=== PATIENT | female | born 1975 | race Two or more races ===

== ENCOUNTER 2016-09-01 14:53 | Emergency (ER) | payer SELFPAY ==
[~2016-09-01] VITALS: Ht 152.4 cm; Wt 85.3 kg
[~2016-09-01 14:53] MED LIST: SULF1TAB24 PO; TRAM-48 PO
--- NOTE | 2016-09-01 15:34 | EKG ---
[facility] [address] [place] [address] Test Date: 2016-09-01 Test Time: 15:11:38 Pat Name: YAMIL BLAKELY Department: Room: Gender: F [employer]: : 1975 Requested By: GARRET MOJICA Order Number: [id number] Reading MD: Cher Osuna Measurements Intervals Bude Rate: 93 P: 30 MN: 158 QRS: -15 QRSD: 80 T: -3 QT: 350 QTc: 438 Interpretive Statements SINUS RHYTHM LEFTWARD AXIS OTHERWISE NORMAL ECG RI6.01 No previous ECG available for comparison Electronically Signed On 09-03-2016 15:49:34 CDT by Cher Osuna
--- NOTE | 2016-09-01 15:37 | RAD ---
Chest radiograph 09/01/2016 at 1526 hours Indication: Chest pain Comparison: None available Technique: Single portable upright frontal view of the chest is provided. Findings: Cardiomediastinal silhouette is within normal limits. No pleural effusions, pulmonary vascular congestion or pneumothorax. The lungs are clear. Osseous structures are normal. Impression: No acute cardiopulmonary process.
[2016-09-01 15:42] LABS: BASO % 0 % (0-3); EOS % 1 % (0-3); HEMATOCRIT 41.6 % (36.0-47.0); HEMOGLOBIN 14.5 g/dL (12.0-15.5); LYMPH % 19 % (24-48); MEAN CORPUSCULAR HEMOGLOBIN 30 pg (25-35); MEAN CORPUSCULAR HGB CONC 35 g/dL (31-37); MEAN CORPUSCULAR VOLUME 85 fL (79-100); MONO % 3 % (0-9); NEUT % 77 % (31-73); PLATELET COUNT 237 x10^3/uL (140-400); RED BLOOD COUNT 4.93 x10^6/uL (3.50-5.40); RED CELL DISTRIBUTION WIDTH 13.2 % (11.5-14.5); WHITE BLOOD COUNT 10.8 x10^3/uL (4.0-11.0)
--- NOTE | 2016-09-01 16:31 | ED.ADGEN ---
Past Medical History Past Medical History: Diabetes-Type II Past Surgical History: No Surgical History, Alcohol Use: None Drug Use: None Adult General Chief Complaint Chief Complaint: CHEST PAIN HPI HPI Patient is a 41 year old Comoran speaking, female who presents with left-sided chest wall pain. Chest wall pain is described as sharp, worse with palpation and deep breathing. Pain lasts for 2-3 seconds at a time and occurs with deep breathing an normal exertion. It is not associated shortness of breath, nausea, sweats, leg pain or swelling. Patient reports occasional cough. Denies abdominal pain. No leg pain or swelling. No history of DVT or PE. Patient is a nonsmoker. She is accompanied at bedside by her daughter. Review of Systems Review of Systems ROS as per HPI. Allergies Allergies Allergies Coded Allergies Type Severity Reaction Last Updated Verified No Known Drug Allergies 09/06/15 No Physical Exam Physical Exam Constitutional: Well developed, well nourished, no acute distress, non-toxic appearance. HENT: Normocephalic, atraumatic, bilateral external ears normal, oropharynx moist, nose normal. Eyes: PERRLA, EOMI, conjunctiva normal. Neck: Normal range of motion, no tenderness, supple. Cardiovascular:Heart rate regular rhythm, no murmur. Lungs & Thorax: Bilateral breath sounds clear to auscultation. Abdomen: Bowel sounds normal, soft, no tenderness. Skin: Warm, dry. Back: No tenderness. Extremities: No tenderness. Neurologic: Alert and oriented X 3, normal motor function, normal sensory function, no focal deficits noted. Psychologic: Affect normal, judgement normal, mood normal . Current Patient Data Vital Signs Vital Signs Date Time Temp Pulse Resp B/P (MAP) Pulse Ox O2 Delivery O2 Flow Rate FiO2 09/01/16 18:15 94 20 163/96 (118) 94 Room Air 09/01/16 15:47 98.3 98.3 Lab Values Laboratory Tests Test 09/01/16 15:30 White Blood Count 10.8 x10^3/uL (4.0-11.0) Red Blood Count 4.93 x10^6/uL (3.50-5.40) Hemoglobin 14.5 g/dL (12.0-15.5) Hematocrit 41.6 % (36.0-47.0) Mean Corpuscular Volume 85 fL (79-100) Mean Corpuscular Hemoglobin 30 pg (25-35) Mean Corpuscular Hemoglobin Concent 35 g/dL (31-37) Red Cell Distribution Width 13.2 % (11.5-14.5) Platelet Count 237 x10^3/uL (140-400) Neutrophils (%) (Auto) 77 % (31-73) H Lymphocytes (%) (Auto) 19 % (24-48) L Monocytes (%) (Auto) 3 % (0-9) Eosinophils (%) (Auto) 1 % (0-3) Basophils (%) (Auto) 0 % (0-3) Neutrophils # (Auto) 8.3 x10^3uL (1.8-7.7) H Lymphocytes # (Auto) 2.0 x10^3/uL (1.0-4.8) Monocytes # (Auto) 0.3 x10^3/uL (0.0-1.1) Eosinophils # (Auto) 0.1 x10^3/uL (0.0-0.7) Basophils # (Auto) 0.0 x10^3/uL (0.0-0.2) D-Dimer (Marilee) < 0.27 ug/mlFEU Sodium Level 136 mmol/L (136-145) Potassium Level 3.6 mmol/L (3.5-5.1) Chloride Level 101 mmol/L (98-107) Carbon Dioxide Level 22 mmol/L (21-32) Anion Gap 13 (6-14) Blood Urea Nitrogen 14 mg/dL (7-20) Creatinine 0.6 mg/dL (0.6-1.0) Estimated GFR (Cockcroft-Gault) 111.3 BUN/Creatinine Ratio 23 (6-20) H Glucose Level 225 mg/dL (70-99) H Calcium Level 9.1 mg/dL (8.5-10.1) Total Bilirubin 0.4 mg/dL (0.2-1.0) Aspartate Amino Transferase (AST) 21 U/L (15-37) Alanine Aminotransferase (ALT) 28 U/L (14-59) Alkaline Phosphatase 108 U/L (46-116) Troponin I Quantitative < 0.017 ng/mL (0.000-0.055) Total Protein 7.6 g/dL (6.4-8.2) Albumin 3.5 g/dL (3.4-5.0) Albumin/Globulin Ratio 0.9 (1.0-1.7) L Laboratory Tests 09/01/16 15:30 Laboratory Tests 09/01/16 15:30 EKG EKG [Chest XR: Sinus rhythm, rate 93, no acute ST-T wave changes.] Radiology/Procedures Radiology/Procedures [] Course & Med Decision Making Course & Med Decision Making Pertinent Labs and Imaging studies reviewed. (See chart for details) [Reproducible chest wall pain with alvarado negative workup. Symptoms most consistent with costochondritis. We'll treat supportively with PCP follow-up as needed. drapery head former was utilized to give her patient's understanding of diagnosis and discharge instructions.] Dragon Disclaimer Dragon Disclaimer This electronic medical record was generated, in whole or in part, using a voice recognition dictation system. GARRET MOJICA DO Sep 01, 2016 16:30
[2016-09-01 16:32] LABS: CALCIUM 9.1 mg/dL (8.5-10.1); CREATININE 0.6 mg/dL (0.6-1.0); GFR 111.3; POTASSIUM 3.6 mmol/L (3.5-5.1)
[2016-09-01 16:38] LABS: ALBUMIN 3.5 g/dL (3.4-5.0); ALBUMIN/GLOBULIN RATIO 0.9 (1.0-1.7); TOTAL BILIRUBIN 0.4 mg/dL (0.2-1.0); TOTAL PROTEIN 7.6 g/dL (6.4-8.2)
[2016-09-01 18:15] VITALS: BP 163/96
== END 2016-09-01 18:41 | disposition home or self-care (01) ==
LOC: ER 14:53
DX: R07.89 Other chest pain (principal); R05 Cough; E11.9 Type 2 diabetes mellitus without complications
CPT/HCPCS: 36415; 71010; 80053; 84484; 85027; 85379; 93005; 99285-25

== ENCOUNTER 2017-02-21 09:59 | Emergency (ER) | payer SELFPAY ==
[2017-02-21 10:20] LABS: ADD MAN DIFF? NO
[2017-02-21 10:36] LABS: ANION GAP 18 (6-14); BLOOD UREA NITROGEN 14 mg/dL (7-20); CALCIUM 9.1 mg/dL (8.5-10.1); CARBON DIOXIDE 17 mmol/L (21-32); CHLORIDE 97 mmol/L (98-107); CREATININE 0.7 mg/dL (0.6-1.0); GFR 93.2; GLUCOSE 387 mg/dL (70-99); POTASSIUM 4.3 mmol/L (3.5-5.1); SODIUM 132 mmol/L (136-145)
[2017-02-21 10:38] LABS: BASO # 0.1 x10^3/uL (0.0-0.2); BASO % 1 % (0-3); EOS # 0.2 x10^3/uL (0.0-0.7); EOS % 2 % (0-3); HEMATOCRIT 47.8 % (36.0-47.0); LYMPH % 38 % (24-48); MEAN CORPUSCULAR HEMOGLOBIN 29 pg (25-35); MEAN CORPUSCULAR HGB CONC 33 g/dL (31-37); MEAN CORPUSCULAR VOLUME 87 fL (79-100); MONO # 0.4 x10^3/uL (0.0-1.1); MONO % 5 % (0-9); NEUT # 4.4 x10^3uL (1.8-7.7); NEUT % 55 % (31-73); PLATELET COUNT 172 x10^3/uL (140-400); RED BLOOD COUNT 5.48 x10^6/uL (3.50-5.40); RED CELL DISTRIBUTION WIDTH 13.3 % (11.5-14.5); WHITE BLOOD COUNT 8.1 x10^3/uL (4.0-11.0)
[2017-02-21 10:43] LABS: ALBUMIN 3.6 g/dL (3.4-5.0); ALK PHOS 127 U/L (46-116); ALT (SGPT) 60 U/L (14-59); AST (SGOT) 52 U/L (15-37); DIRECT BILIRUBIN < 0.1 mg/dL (0.0-0.2); LIPASE 88 U/L (73-393); TOTAL BILIRUBIN 0.3 mg/dL (0.2-1.0); TOTAL PROTEIN 8.4 g/dL (6.4-8.2)
[2017-02-21 10:48] LABS: D-DIMER < 0.27 ug/mlFEU (0.00-0.50); TROPONINI < 0.017 ng/mL (0.000-0.055)
[2017-02-21] MEDS: IV NORMAL SALINE 1000ML BAG 1,000 ML IV (11:17)
[2017-02-21] MEDS: ASPIRIN CHEWABLE 81 MG TABLET. PO (11:18)
[2017-02-21 11:23] LABS: BASE EXCESS COOX -3 mmol/L (-3-3); CARBON MONOXIDE 0.1 % (0.0-1.9); HCO3 COOX 22 mmol/L (21-28); METHEMOGLOBIN 0.5 % (0.0-1.9); OXYHEMOGLOBIN 94.1 %; PCO2 COOX 39 mmHg (35-46); PH COOX 7.36 (7.35-7.45); PO2 COOX 76 mmHg (75-108); SAT O2 COOX 95 % (92-99); TOTAL HEMOGLOBIN 15.8 g/dL
[2017-02-21 12:03] LABS: ACETAMIN < 2.0 mcg/ml (10-30); SALIC < 2.8 mg/dL (2.8-20.0)
[2017-02-21 12:06] LABS: LACTIC ACID 1.8 mmol/L (0.4-2.0)
[2017-02-21 14:06] LABS: BILIRUBIN,URINE NEGATIVE (NEG); CLARITY,URINE CLEAR; COLOR,URINE YELLOW; GLUCOSE,URINE >=1000 mg/dL (NEG); NITRITE,URINE NEGATIVE (NEG); PROTEIN,URINE 100 mg/dL (NEG-TRACE); UROBILINOGEN,URINE 0.2 mg/dL (0.2 mg/dL)
[2017-02-21 14:19] LABS: BACTERIA,URINE MODERATE /HPF (0-FEW); RBC,URINE OCC /HPF (0-2); SQUAMOUS EPITHELIAL CELL,UR MOD /LPF; WBC,URINE OCC /HPF (0-4)
[2017-02-21 14:26] LABS: NEG OBC UR NEG; POS OBC UR POS; U PREG PATIENT NEGATIVE (NEG)
== END 2017-02-21 15:55 | disposition home or self-care (01) ==
LOC: ER 09:59
DX: R07.89 Other chest pain (principal); R05 Cough; R06.00 Dyspnea, unspecified; E11.9 Type 2 diabetes mellitus without complications; Z79.4 Long term (current) use of insulin
CPT/HCPCS: 36415; 36600; 71045; 80048; 80076; 80329; 81001; 81025; 82805; 83605; 83690; 84484; 85025; 85379; 87086; 93005; 96360; 99285-25; J7030

== ENCOUNTER 2018-02-27 10:05 | Emergency (ER) | payer SELFPAY ==
[~2018-02-27] VITALS: Ht 157.5 cm; Wt 83.5 kg
[2018-02-27 10:18] VITALS: BP 168/89
[2018-02-27] MEDS ORDERED: IBUPROFEN 400 MG TABLET. PO ONE (10:45)
--- NOTE | 2018-02-27 10:57 | RAD ---
Chest, 2 views, 02/27/2018: HISTORY: Cough, fever, body aches Comparison is made to a study from 02/21/2017. The heart is at the upper limits of normal in size. The pulmonary vascularity is normal. No pulmonary infiltrate is seen. There is no evidence of pleural fluid. IMPRESSION: No acute cardiopulmonary abnormality is detected. Electronically signed by: Ramon Leon MD (02/27/2018 10:52 AM) [facility]
[2018-02-27 11:05] LABS: INFLUENZA B PATIENT NEGATIVE (NEGATIVE)
[2018-02-27 11:06] LABS: INFLUENZA A PATIENT POSITIVE (NEGATIVE)
--- NOTE | 2018-02-27 11:14 | PHYS DOC ---
Past Medical History Past Medical History: Diabetes-Type II Past Surgical History: No Surgical History, Alcohol Use: None Drug Use: None Adult General Chief Complaint Chief Complaint: FLU SYMPTOM HPI HPI Patient is a 42 year old female who presents to the emergency Department today with complaints of a fever, cough, body aches, headache, and fatigue for the last 5 days. He states that she received her flu shot this past fall. She denies any nausea, vomiting, diarrhea, abdominal pain, ear pain, or sore throat. Patient states she last took Tylenol around 8:00 this morning for relief of her fever. She states that nothing has seemed to help or provoke her symptoms. Patient states she is a diabetic and her blood sugar has been running 120 with the illness.. Review of Systems Review of Systems Constitutional: See history of present illness Eyes: Denies change in visual acuity, redness, or eye pain [] HENT: Denies ear pain or sore throat; see history of present illness [] Respiratory: Denies wheezing or shortness of breath; see history of present illness [] Cardiovascular: No additional information not addressed in HPI [] GI: Denies abdominal pain, nausea, vomiting, or diarrhea [] : Denies dysuria or increased urinary frequency Musculoskeletal: [place] generalized body aches Integument: Denies rash or skin lesions [] Neurologic: Denies focal weakness or sensory changes [] All other systems were reviewed and found to be within normal limits, except as documented in this note. Current Medications Current Medications Current Medications Medications (Trade) Dose Ordered Sig/[facility] Start Time Stop Time Status Last Admin Dose Admin Ibuprofen (Motrin) 800 mg 1X ONCE 02/27/18 10:45 02/27/18 10:46 DC 02/27/18 10:43 800 MG Allergies Allergies Allergies Coded Allergies Type Severity Reaction Last Updated Verified No Known Drug Allergies 02/21/17 No Physical Exam Physical Exam Constitutional: Well developed, well nourished, no acute distress, ill appearance. [] HENT: Normocephalic, atraumatic, bilateral external ears normal, bilateral TMs normal, posterior pharynx normal, oropharynx moist, no oral exudates, nose normal. [] Eyes: PERRLA, conjunctiva injected, no discharge. [] Neck: Normal range of motion, no tenderness, supple, no stridor. [] Cardiovascular:Heart rate regular rhythm, no murmur [] Lungs & Thorax: Bilateral breath sounds clear to auscultation [] Skin: Flushed, hot, and dry, no rash. [] Extremities: No cyanosis, no clubbing, ROM intact, no edema. [] Neurologic: Alert and oriented X 3, normal motor function, normal sensory function, no focal deficits noted. [] Psychologic: Affect normal, judgement normal, mood normal. [] Current Patient Data Vital Signs Vital Signs Date Time Temp Pulse Resp B/P (MAP) Pulse Ox O2 Delivery O2 Flow Rate FiO2 02/27/18 10:18 102.7 123 16 168/89 (115) 95 Room Air 102.7 Lab Values Laboratory Tests Test 02/27/18 10:19 Influenza Type A Antigen Positive (NEGATIVE) Influenza Type B Antigen Negative (NEGATIVE) EKG EKG [] Radiology/Procedures Radiology/Procedures PROCEDURE: CHEST PA & LATERAL Chest, 2 views, 02/27/2018: HISTORY: Cough, fever, body aches Comparison is made to a study from 02/21/2017. The heart is at the upper limits of normal in size. The pulmonary vascularity is normal. No pulmonary infiltrate is seen. There is no evidence of pleural fluid. IMPRESSION: No acute cardiopulmonary abnormality is detected.[] Influenza A positive; influenza B negative Course & Med Decision Making Course & Med Decision Making Pertinent Labs and Imaging studies reviewed. (See chart for details) [] Dragon Disclaimer Dragon Disclaimer This electronic medical record was generated, in whole or in part, using a voice recognition dictation system. Departure Departure Impression: Primary Impression: Influenza A Disposition: 01 HOME, SELF-CARE Condition: STABLE Referrals: NO PCP (PCP) Patient Instructions: Fever, Adult, [id number], Influenza A (H1N1) Additional Instructions: Recommend the use of a Cool mist humidifier in room at bedtime. Tylenol or ibuprofen prn pain/fever. Increase clear fluids. Avoid triggers such as smoke, fragrance, dust, and pollen. May take OTC cough suppressants as needed. Follow-up with your primary care doctor symptoms persist , Return to the ER symptoms worsen. CARLA GARZA APRN Feb 27, 2018 11:14
== END 2018-02-27 11:42 | disposition home or self-care (01) ==
LOC: ER 10:05
DX: J11.1 Influenza due to unidentified influenza virus with other respiratory manifestations (principal); R53.83 Other fatigue; M79.18 Myalgia, other site; Z98.890 Other specified postprocedural states; E11.9 Type 2 diabetes mellitus without complications
CPT/HCPCS: 71046; 87804; 99284-25

== ENCOUNTER 2018-05-01 09:03 | Emergency (ER) | payer SELFPAY ==
[~2018-05-01] VITALS: Ht 144.8 cm; Wt 83.5 kg
[2018-05-01 09:14] VITALS: BP 147/70
[2018-05-01 09:35] LABS: BILIRUBIN,URINE NEGATIVE (NEG); CLARITY,URINE CLEAR; COLOR,URINE YELLOW; NITRITE,URINE NEGATIVE (NEG); PROTEIN,URINE NEGATIVE (NEG-TRACE); UROBILINOGEN,URINE 0.2 mg/dL (0.2 mg/dL)
[2018-05-01 09:39] LABS: BACTERIA,URINE MANY /HPF (0-FEW); SQUAMOUS EPITHELIAL CELL,UR MANY /LPF
[2018-05-01 09:40] LABS: RBC,URINE OCC /HPF (0-2)
--- NOTE | 2018-05-01 09:40 | PHYS DOC ---
Past Medical History Past Medical History: Diabetes-Type II Past Surgical History: No Surgical History, Alcohol Use: None Drug Use: None Adult General Chief Complaint Chief Complaint: LOWER BACK PAIN OR INJURY HPI HPI Patient is a 43 year old female with history of diabetes type 2 who presents to the ED today complaining of 10 out of 10 bilateral low back pain nonradiating in nature that began 2 weeks ago, patient states the pain is worse when she is sitting down, she describes the pain as burning sensation. Patient denies any numbness or tingling to bilateral lower extremities. Denies any loss of bowel bladder function. She states she's been taking kgle-qne-fraaeyo medications with minimal relief. PCP [facility] Patient is Faroese-speaking and interpretation is provided by family Review of Systems Review of Systems Constitutional: Denies fever or chills [] Eyes: Denies change in visual acuity, redness, or eye pain [] HENT: Denies nasal congestion or sore throat [] Respiratory: Denies cough or shortness of breath [] Cardiovascular: No additional information not addressed in HPI [] GI: Denies abdominal pain, nausea, vomiting, bloody stools or diarrhea [] : Denies dysuria or hematuria [] Musculoskeletal: Reports bilateral low back pain Integument: Denies rash or skin lesions [] Neurologic: Denies headache, focal weakness or sensory changes [] All other systems were reviewed and found to be within normal limits, except as documented in this note. Current Medications Current Medications Current Medications Medications (Trade) Dose Ordered Sig/Monique Start Time Stop Time Status Last Admin Dose Admin Acetaminophen/ Hydrocodone Bitart (Lortab 5/325) 1 tab 1X ONCE 05/01/18 09:45 05/01/18 09:46 DC 05/01/18 09:51 1 TAB Cyclobenzaprine HCl (Flexeril) 10 mg 1X ONCE 05/01/18 09:45 05/01/18 09:46 DC 05/01/18 09:49 10 MG Naproxen (Naprosyn) 500 mg 1X STAT 05/01/18 09:36 05/01/18 09:38 DC 05/01/18 09:49 500 MG Allergies Allergies Allergies Coded Allergies Type Severity Reaction Last Updated Verified No Known Drug Allergies 02/21/17 No Physical Exam Physical Exam Constitutional: Well developed, well nourished, no acute distress, non-toxic appearance. [] HENT: Normocephalic, atraumatic, bilateral external ears normal, oropharynx moist, no oral exudates, nose normal. [] Eyes: PERRLA, EOMI, conjunctiva normal, no discharge. [] Neck: Normal range of motion, no tenderness, supple, no stridor. [] Cardiovascular:Heart rate regular rhythm, no murmur [] Lungs & Thorax: Bilateral breath sounds clear to auscultation [] Abdomen: Bowel sounds normal, soft, no tenderness, no masses, no pulsatile masses. [] Skin: Warm, dry, no erythema, no rash. [] Back: Diffuse paraspinal muscle tenderness bilateral lumbar spine, no midline lumbar spine tenderness, no CVA tenderness. [] Extremities: No tenderness, no cyanosis, no clubbing, ROM intact, no edema. [] Neurologic: Alert and oriented X 3, normal motor function, normal sensory function, no focal deficits noted. [] Psychologic: Affect normal, judgement normal, mood normal. [] Current Patient Data Vital Signs Vital Signs Date Time Temp Pulse Resp B/P (MAP) Pulse Ox O2 Delivery O2 Flow Rate FiO2 05/01/18 09:51 96 05/01/18 09:14 97.7 74 18 147/70 (95) Room Air 97.7 Lab Values Laboratory Tests Test 05/01/18 09:13 Urine Collection Type Void Urine Color Yellow Urine Clarity Clear Urine pH 5.0 Urine Specific Crosby >=1.030 Urine Protein Negative mg/dL (NEG-TRACE) Urine Glucose (UA) >=1000 mg/dL (NEG) Urine Ketones (Stick) Negative mg/dL (NEG) Urine Blood Negative (NEG) Urine Nitrite Negative (NEG) Urine Bilirubin Negative (NEG) Urine Urobilinogen Dipstick 0.2 mg/dL (0.2 mg/dL) Urine Leukocyte Esterase Negative (NEG) Urine RBC Occ /HPF (0-2) Urine WBC 5-10 /HPF (0-4) Urine Squamous Epithelial Cells Many /LPF Urine Bacteria Many /HPF (0-FEW) Urine Mucus Slight /LPF EKG EKG [] Course & Med Decision Making Course & Med Decision Making Pertinent Labs and Imaging studies reviewed. (See chart for details) This is a 43-year-old female patient presented to the ED today with bilateral low back pain that has been going on for 2 weeks. Urine analysis is negative for infection, negative for blood. Glucose over 1000, patient has known history of diabetes, she states she has not taken any of her metformin or glyburide this morning. Patient's pain appears musculoskeletal. She will be discharged with tramadol. Follow-up with her PCP in the course of this week or next week. Dragon Disclaimer Dragon Disclaimer This electronic medical record was generated, in whole or in part, using a voice recognition dictation system. Departure Departure Impression: Primary Impression: Low back pain Disposition: HOME, SELF-CARE Condition: STABLE Referrals: NO PCP (PCP) follow up with your doctor at [facility] next week Patient Instructions: Back Pain, Adult Additional Instructions: You were evaluated in the emergency room for back pain. We put you on medications, take them as prescribed. Follow-up with your doctor in 1-2 weeks. Apply heat to your low back. Do not lift anything greater than a gallon of milk for week. Follow up with your doctor next week. Scripts Tramadol Hcl (TRAMADOL HCL) 50 Mg Tablet 50 MG PO Q6HRS PRN for PAIN, #30 TAB Prov: FRAN MATTHEWS APRN 05/01/18 Problem Qualifiers Primary Impression: Low back pain Chronicity: acute Back pain laterality: bilateral Sciatica presence: without sciatica Qualified Codes: M54.5 - Low back pain FRAN MATTHEWS APRN May 01, 2018 09:40
[2018-05-01] MEDS: NAPROXEN 500 MG TABLET PO STA (09:49)
[2018-05-01] MEDS: CYCLOBENZAPRINE 10 MG TABLET. PO ONE (09:49)
[2018-05-01] MEDS: HYDROcodone/APAP 5/325MG 1 TAB TABLET PO ONE (09:51)
[2018-05-01] MEDS ORDERED: TRAM50TA PO (09:56)
== END 2018-05-01 10:15 | disposition home or self-care (01) ==
LOC: ER 09:03
DX: M54.5 Low back pain (principal); E11.9 Type 2 diabetes mellitus without complications; Z98.890 Other specified postprocedural states
CPT/HCPCS: 81001; 87086; 99284

== ENCOUNTER 2021-06-15 17:07 | Emergency (ER) | payer SELFPAY ==
[~2021-06-15] VITALS: Ht 134.6 cm; Wt 81.4 kg
[~2021-06-15 17:07] MED LIST changes: +TRAM50TA PO
[2021-06-15 17:10] VITALS: BP 159/76
[2021-06-15] MEDS ORDERED: predniSONE 10 MG TABLET PO ONE (18:00)
[2021-06-15] MEDS ORDERED: PRED20TA PO (18:16)
[2021-06-15] MEDS ORDERED: TRIA15OI TP (18:16)
--- NOTE | 2021-06-15 18:17 | PHYS DOC ---
Past Medical History Past Medical History: Diabetes-Type II Past Surgical History: No Surgical History, Smoking Status: Never Smoker Alcohol Use: None Drug Use: None General Adult EDM: Chief Complaint: SKIN RASH/ABSCESS HPI: HPI: Patient is a 46-year-old female that presents today with a rash. Patient is Swedish-speaking only and the assistant professor of physics line was used for all information in the HPI and the review of systems. Patient states the rash started approximately 3 months ago over her arms and abdomen area, she states that she was seen at the [facility] emergency department was given the medication for a scabies which she treated herself and then she states that they gave her a prescription for steroid cream to be used after she had treated for the scabies. She said that she states that she is a [facility] of [facility] she has been using oatmeal baths over the last 3 months and the rash has not improved she presents today for further evaluation and management of this rash. Clinics, as she has not followed up with them regarding this rash. 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 Patient denies facial swelling, lip swelling, fever chills, chest pain, or shortness of breath. Review of Systems: Review of Systems: Constitutional: Denies fever or chills. [] Eyes: Denies change in visual acuity. [] HENT: Denies nasal congestion or sore throat. [] Respiratory: Denies cough or shortness of breath. [] Cardiovascular: Denies chest pain or edema. [] GI: Denies abdominal pain, nausea, vomiting, bloody stools or diarrhea. [] : Denies dysuria. [] Musculoskeletal: Denies back pain or joint pain. [] Integument: rash. [] Neurologic: Denies headache, focal weakness or sensory changes. [] Endocrine: Denies polyuria or polydipsia. [] Lymphatic: Denies swollen glands. [] Psychiatric: Denies depression or anxiety. [] Heart Score: C/O Chest Pain: No Risk Factors: Risk Factors: DM, Current or recent (<one month) smoker, HTN, HLP, family history of CAD, obesity. Risk Scores: Score 0 - 3: 2.5% MACE over next 6 weeks - Discharge Home Score 4 - 6: 20.3% MACE over next 6 weeks - Admit for Clinical Observation Score 7 - 10: 72.7% MACE over next 6 weeks - Early Invasive Strategies Current Medications: Current Medications Medications (Trade) Dose Ordered Sig/Monique Start Time Stop Time Status Last Admin Dose Admin Prednisone (Prednisone) 50 mg 1X ONCE 06/15/21 18:00 06/15/21 18:01 UNV Allergies: Allergies: Allergies Coded Allergies Type Severity Reaction Last Updated Verified No Known Drug Allergies 02/21/17 No Physical Exam: PE: Constitutional: Well developed, well nourished, no acute distress, non-toxic appearance. [] HENT: Normocephalic, atraumatic, bilateral external ears normal, oropharynx moist, no oral exudates, nose normal. [] Eyes: PERRLA, EOMI, conjunctiva normal, no discharge. [] Neck: Normal range of motion, no tenderness, supple, no stridor. [] Cardiovascular:Heart rate regular rhythm, no murmur [] Lungs & Thorax: Bilateral breath sounds clear to auscultation [] Abdomen: Bowel sounds normal, soft, no tenderness, no masses, no pulsatile masses. [] Skin: Reddened raised rash noted over bilateral arms and back and abdomen, no drainage noted rash is not warm to touch, Back: No tenderness, no CVA tenderness. [] Extremities: No tenderness, no cyanosis, no clubbing, ROM intact, no edema. [] Neurologic: Alert and oriented X 3, normal motor function, normal sensory function, no focal deficits noted. [] Psychologic: Affect normal, judgement normal, mood normal. [] Current Patient Data: Vital Signs: Vital Signs Date Time Temp Pulse Resp B/P (MAP) Pulse Ox O2 Delivery O2 Flow Rate FiO2 06/15/21 17:10 97.5 18 20 159/76 (103) 97 Room Air 97.5 EKG: EKG: [] Radiology/Procedures: Radiology/Procedures: [] Course & Med Decision Making: Course & Med Decision Making Pertinent Labs and Imaging studies reviewed. (See chart for details) Patient is alert and orientated with no difficulty breathing no swelling or rash noted on her face, all information given and the medical decision was done using interpretive services. I have informed the patient I will place her on a steroid and reorder the steroid cream and have advised her to follow-up with her primary care physician at [facility]. Patient is agreeable with the plan of care. Trini Disclaimer: Trini Disclaimer: This electronic medical record was generated, in whole or in part, using a voice recognition dictation system. Departure Departure Impression: Primary Impression: Rash Disposition: 01 HOME / SELF CARE / HOMELESS Condition: STABLE Referrals: NO PCP (PCP) Patient Instructions: Rash Additional Instructions: Prednisone take as directed over the next 12 days Utgm-[id number] Claritin daily Cijt-etq-psbrrjy Benadryl 2 tablets at night Follow-up with your primary care physician at [facility] for further evaluation and management of this condition Return to the emergency department should you have any shortness of air or swelling of your lips or face. [facility] [address] [place] [address] [facility] [address] [place] [address] Scripts Triamcinolone Acetonide (TRIAMCINOLONE ACETONIDE 0.1% OINT) 15 Gm Oint...g. 1 LM TP BID for WOUND CARE, #1 EACH MIX WITH EUCERIN DIRECTED BY PHYSICIAN Prov: RISHI PATEL APRN 06/15/21 Prednisone (PREDNISONE) 20 Mg Tablet 1 TAB PO UD, #20 TAB Take 60mg daily for three days then Take 40mg daily for three days then Take 20mg daily for three days then Take 1/2 tablet (10mg) for three daily then stop Prov: RISHI PATEL APRN 06/15/21 RISHI PATEL APRN Jun 15, 2021 18:16
== END 2021-06-15 18:55 | disposition home or self-care (01) ==
LOC: ER 17:07
DX: R21 Rash and other nonspecific skin eruption (principal); E11.9 Type 2 diabetes mellitus without complications
CPT/HCPCS: 99283; J7512